=== PATIENT | female | born 1975 | race Caucasian/White ===

== ENCOUNTER 2022-05-08 16:42 | Emergency (ER) | payer OTHER, SELFPAY | END 2022-05-08 20:00 | disposition left against medical advice (07) | PROVIDERS: Emergency Provider Emergency Medicine; PCP Internal Medicine | DX: R26.2 Difficulty in walking, not elsewhere classified (principal) ==

== ENCOUNTER 2022-11-19 11:59 | Emergency (ER) | payer OTHER, SELFPAY ==
[2022-11-19 12:02] VITALS: BP 161/80; PULSE 91; RESP 18; TEMP 36.6; O2SAT 98; BMI 23.5
--- NOTE | 2022-11-19 12:04 | ED.BACK ---
HPI - Back Pain/Injury General Chief Complaint: Back Pain/Injury Stated Complaint: Medical clearance for work Time Seen by Provider: 11/19/22 12:01 Source: patient Mode of arrival: ambulatory Limitations: no limitations History of Present Illness HPI Narrative: 47-year-old female here with complaints of left sided back pain with radiation in the left leg for 1 year. Patient reports she initially had a lifting injury while working. This happened 1 year ago. About a week ago she lifted something heavy and felt increasing pain again. Pain radiates down the left leg. No associated numbness or tingling of the leg. No associated bowel or bladder incontinence. No numbness in the groin. No fevers or chills. Patient reports she is taking ibuprofen which seems to help her pain. Patient is here today because she was told by her employer that she needs to be evaluated prior to returning to work. She has not followed up with any occupational health providers. MD elicited complaint: back pain and back injury Related Data Allergies Allergy/AdvReac Type Severity Reaction Status Date / Time No Known Allergies Allergy Verified 11/19/22 12:05 Review of Systems Review of Systems: Yes all other systems are reviewed and are negative Constitutional: Constitutional: Reports no additional constitutional complaints, Denies body ache(s), Denies chills, Denies fever(s), Denies headache(s) and Denies weakness Eyes: Eyes: Reports no additional eye complaints and Denies change in vision ENT: Reports system reviewed and no additional complaints, except as documented, Denies dizziness, Denies headache(s), Denies nasal congestion, Denies nasal discharge and Denies neck pain Cardiovascular: Cardiovascular: Reports no additional cardiovascular complaints, Denies chest pain, Denies leg edema and Denies dyspnea Respiratory: Respiratory: Reports no additional respiratory complaints, Denies cough and Denies dyspnea Gastrointestinal: Gastrointestinal: Reports no additional gastrointestinal complaints, Denies abdominal pain, Denies diarrhea, Denies nausea and Denies vomiting Genitourinary: Genitourinary: Reports no additional female genitourinary complaints and Denies urinary incontinence Musculoskeletal: Musculoskeletal: Reports no additional musculoskeletal complaints, Reports back pain, Denies arthralgias, Denies joint swelling, Denies neck pain, Denies numbness, Reports radiating pain into limb and Denies tingling Integumentary/Breasts: Skin/Breast: Reports system reviewed and no additional complaints, except as docu and Denies rash Neurologic: Reports system reviewed and no additional complaints, except as documented, Denies Abnormal speech present, Denies dizziness, Denies headache(s), Denies numbness, Denies tingling and Denies weakness PMFSH Past Medical History Attestation statement: The following information was validated with the patient. Source: old records reviewed and nursing notes reviewed Social History Social History Advance Directives: No Advance Directives Information Provided: Yes Physical Exam Vital Signs: Vital Signs: Last Vital Signs Temp 98 F 11/19/22 12:02 Pulse 91 11/19/22 12:02 Resp 18 11/19/22 12:02 BP 161/80 H 11/19/22 12:02 Pulse Ox 98 11/19/22 12:02 O2 Del Method 11/19/22 12:02 BMI result Body Mass Index 23.5 Const: General: cooperative, healthy appearing, comfortable and no acute distress Orientation/consciousness: patient oriented x3 Limitations: no limitations HEENT: Head: Yes normal to inspection Ears: hearing grossly normal bilaterally General nose exam: Normal external nose present Face and sinus: Yes normal facial exam Mouth: Normal oral and palatal mucosa present Throat: Yes posterior oropharynx normal Eyes: General: appearance normal, both eyes and all related structures Pupils: Equal, round and reactive pupils present Neck: Neck: Yes normal visual inspection Chest: Chest palpation & inspection: normal inspection of the chest Resp: Effort & Inspection: normal respiratory effort Auscultation: clear to auscultation bilaterally Cardio: Rate: regular rate Rhythm: regular rhythm Peripheral pulses: Peripheral pulses 2+ throughout GI: Inspection: Yes normal to inspection Palpation (GI): Soft to palpation and nontender Auscultation: normal bowel sounds : General: Yes no CVA tenderness Back/Spine/Pelvis: Other: TTP to left buttocks with compression with pain radiating down the left left leg Pain worsened with left straight leg Back: no CVA tenderness Thoracic/Lumbar Spine: thoracic and lumbar spine normal to inspection Skin: General skin exam: no rashes or lesions noted Neuro: General: patient oriented x3, no focal motor deficits and normal sensation to monofilament Cranial nerves: Yes Equal, round and reactive pupils present, Yes Normal facial strength present and Yes Midline tongue present Cognition (Neuro): normal cognition Speech: No Abnormal speech present Gait exam (Neuro): Normal gait present Motor exam (neuro): 5/5 motor strength present throughout Sensory Exam: Normal double simultaneous stimulation for sensation Deep tendon reflexes (DTR's): Right patellar reflex intensity grade: 2+ and Left patellar reflex intensity grade: 2+ Extrem: General: Yes normal to inspection, Yes no pedal edema and Yes no calf tenderness Medical Decision Making Medical Decision Making MDM Narrative: 47-year-old female here with lower back pain for over year after an injury which occurred at work which was recently aggravated by an additional lifting injury. Patient was recommended to to be evaluated prior to return to work. On exam patient tenderness over the left buttocks which on compression radiates down the left leg. Exam is consistent with sciatica. No neurological findings or red flag symptoms. No midline tenderness, step-offs deformities. Likely sciatica. Recommend patient follow-up with occupational health. Given work note for several days. Reviewed worrisome signs and symptoms when to return to the emergency room. Comfortable plan for discharge home. Differential Diagnosis Differential Diagnoses: The differential diagnosis associated with the presentation includes Low concern for fracture with no midline tenderness, step-offs deformities and no reports of fall or trauma Low concern for epidural abscess no history of IV drug abuse, renal compromise take, fevers, neurological findings on exam Low concern for cauda equina with normal neurological exam. Tests considered The following testing was considered but not selected: No need for imaging-see MDM discussion Discharge Plan Discharge Clinical Impression: Sciatica Patient Disposition: Home, Self-Care Instructions: Sciatica (ED) Additional Instructions: Follow-up with occupational health Motrin or tylenol for pain or fever Gentle stretching, gentle massage Stand Alone Forms: Work/School Release Interventions: ED Discharge Assessment Last Done: 11/19/22 12:34 Discharge Date/Time: 11/19/22 12:34
== END 2022-11-19 12:34 | disposition home or self-care (01) ==
PROVIDERS: Emergency Provider Emergency Medicine; PCP Internal Medicine
DX: Z04.2 Encounter for examination and observation following work accident (principal); M54.42 Lumbago with sciatica, left side
CPT/HCPCS: 99282